=== PATIENT | male | born 1975 | race Caucasian/White ===

== ENCOUNTER 2017-05-31 09:50 | Day surgery (SDC) | payer OTHER ==
[2017-05-31] VITALS (9 sets, daily range): BP systolic 94–146; BP diastolic 48–82; PULSE 72–96; RESP 16–28; Ht 177.8 cm; Wt 92.0 kg
[~2017-05-31] VITALS: Ht 177.8 cm; Wt 92.0 kg
[2017-05-31] MEDS ORDERED: CEFAZOLIN 1 GM/50 ML (PMX) 50 ML IVPB ONE (10:00)
[2017-05-31] MEDS ORDERED: MELO-210 PO (10:44)
[2017-05-31] MEDS ORDERED: OMEG1CAP2 PO (10:45)
[2017-05-31] MEDS ORDERED: ATOR20TA38 PO (10:45)
[2017-05-31] MEDS ORDERED: ALLO100T PO (10:47)
[2017-05-31] MEDS ORDERED: HYDR12.58 PO (10:47)
[2017-05-31] MEDS ORDERED: EPINEPHrine 1 MG/ML 30 ML INJ ONE (12:17)
[2017-05-31] MEDS ORDERED: BACITRACIN/POLYMYXIN 28.35 GM OINT TOP ONE (12:17)
[2017-05-31] MEDS ORDERED: BUPIVACAINE 0.5%/EPI (SDV) 30 ML INJ ONE (12:17)
[2017-05-31] MEDS ORDERED: POLYMYXIN/BACITRACIN 1L IRRIG ONE (12:17)
--- NOTE | 2017-05-31 12:40 | HPN ---
Date/Time of Note Date/Time of Note DATE: 05/31/17 TIME: 12:40 Interval H&P Admission Note Pt. seen H&P reviewed: No system changes ANTONIA DIETRICH MD May 31, 2017 12:40
[2017-05-31] MEDS ORDERED: MIDAZOLAM 1 MG/ML 2 ML INJ ONE (12:41)
[2017-05-31] MEDS ORDERED: ONDANSETRON 4 MG INJ ONE (13:50)
[2017-05-31] MEDS ORDERED: PROPOFOL 20 ML ONE (13:50)
[2017-05-31] MEDS ORDERED: CEFAZOLIN 1 GM INJ ONE (13:50)
[2017-05-31] MEDS ORDERED: LIDOCAINE 2% (SDV) 5 ML INJ ONE (13:50)
--- NOTE | 2017-05-31 14:16 | OPR ---
Operative Report Planned Procedure Procedure date May 31, 2017 Procedure(s) right acl reconstruction Performed by see signature line Anesthesia Type: general Procedure Description Under satisfactory [] anesthesia, the patient was prepped and draped and placed in a supine position, tilted to the left. Pfannenstiel incision was made, carried through the subcutaneous tissue. Bleeders brought under control with electrocautery. Fascia incised to the length of the incision. Rectus muscles from the fascia, divided midline. Peritoneum exposed, entered through a transverse incision. Exploration of abdomen revealed gravid uterus. Bladder flap was developed. Transverse incision was made in the lower segment of the uterus. Amniotic sac ruptured. [] amniotic fluid noted. [] Nasal oropharyngeal suction was performed. The baby was handed to the team for immediate attention. The placenta was delivered manually intact. Uterine cavity was cleaned with wet sponge and drainage established. Uterus closed in 2 layers using [] in continuous fashion. Peritoneal cavity irrigated with warm saline. Sponge, needle and instrument count reported to be correct. Abdominal peritoneum closed with [] continuously. Rectus muscle approximated with []. Fascia closed with [], and skin closed with rose. Estimated blood loss []mL. Urine bag contained []mL of urine Post-Procedure Findings: Live Baby [], Apgars [] and [], weight [], position [], [] presentation []cord. Estimated blood loss: 10 - 50 ml's Complication(s): no Physician Certification I, the undersigned physician, hereby certify that I have discussed the procedure described in this consent form with this patient (or the patient's legal employee's representative), including: * The risk and benefits of the procedure; * Any adverse reactions that may reasonably be expected to occur; * Any alternative efficacious methods of treatment which may be medically viable ; * The potential problems that may occur during recuperation; * Potential for blood transfusion and associated risks/benefits; and * Any research or economic interest I may have regarding this treatment. I further certify that the patient/legally responsible person was encouraged to ask question and that all questions were answered. ANTONIA DIETRICH MD May 31, 2017 14:16
[2017-05-31] MEDS ORDERED: HYDROmorphONE (0.2 MG/ML) 10ML SYG IV PRN ×2 (14:30)
[2017-05-31] MEDS ORDERED: OXYCODONE/ACETAMINOPHEN (5/325) TAB PO PRN (14:30)
[2017-05-31] MEDS ORDERED: FENTAnyl 50 MCG/ML VIAL IV PRN ×3 (14:30)
[2017-05-31] MEDS ORDERED: LABETALOL HCL 20MG INJ IV PRN (14:30)
[2017-05-31] MEDS ORDERED: ONDANSETRON 4 MG INJ IV PRN (14:30)
[2017-05-31] MEDS ORDERED: hydrALAzine 20 MG INJ IV PRN (14:30)
--- NOTE | 2017-06-02 14:18 | OPR ---
DATE OF OPERATION: 05/31/2017 PREOPERATIVE DIAGNOSIS: Right anterior cruciate ligament deficient tear with the internal derangeme nt. POSTOPERATIVE DIAGNOSIS: Right anterior cruciate ligament deficient tear with the internal derangem ent. PROCEDURE PERFORMED: 1. Right knee arthroscopic anterior cruciate ligament reconstruction using patellar tendon allograf t. 2. Partial medial meniscectomy. 3. Synovectomy. ESTIMATED BLOOD LOSS: 50 mL. TOURNIQUET TIME: 35 minutes. COMPLICATIONS: None. DESCRIPTION OF PROCEDURE: Patient taken to the operating room and general anesthetic given with int ubation, 2 grams of Kenalog given for prophylaxis. Tourniquet applied on the right thigh. Right le g prepped and draped in usual sterile manner, exsanguinated with Esmarch bandage, tourniquet inflate d to 300 mmHg. Synovectomy was performed. Anterior cruciate ligament was deficient. A tear in the medial meniscus at the 3 o'clock position was debrided with the shaver. A patellar tendon allograf t was then obtained, thawed in saline and drill holes placed with #2 FiberWire sutures. The graft m easured 10 cm with 3 mm bone plugs on each end, measuring 10 mm in diameter. The ACL guide was then placed at 55 degrees into the anatomic location of the ACL, anterior to the posterior cruciate liga ment. The guide pin advanced and tibial tunnel was drilled to 10 mm followed by an offset guide of 7 degrees to drill a tunnel in the lateral femoral condyle. 30 mm tunnels were drilled. The graft was prepared. The femoral side was fixed with the [employer] RigidFix system with 2 pins. It was advanc ed and satisfactory placement was noted arthroscopically. The femoral plug was fixed satisfactory. The tibial plug was fixed with the knee in extension with tension on the graft and a 10 x 28 mm scr ew was placed with good fixation. Wound irrigated with antibiotic solution. Hemostasis ascertained . Portals closed with rose. Compression bandage applied, knee immobilizer, anesthetic rec overy in stable condition. Dictated By: ANTONIA MENDIOLA/LUIS Conf#: [id number] DID#: [id number]
== END 2017-05-31 16:49 | disposition home or self-care (01) ==
LOC: SDS 09:50
PROVIDERS: ATTEND Specialist
DX: S83.511A Sprain of anterior cruciate ligament of right knee, initial encounter (principal); S83.241A Other tear of medial meniscus, current injury, right knee, initial encounter; X58.XXXA Exposure to other specified factors, initial encounter; Y93.9 Activity, unspecified; Y92.89 Other specified places as the place of occurrence of the external cause; Y99.8 Other external cause status
CPT/HCPCS: 29881; 29888; C1713; C1762; J0171; J0690; J1170; J2250; J2405; J3010; Z7512; Z7610